=== PATIENT | female | born 1950 | race Two or more races ===

== ENCOUNTER 2021-03-31 05:49 | Day surgery (SDC) | payer OTHER ==
[~2021-03-31 05:49] MED LIST: GABAPENT PO; HUMALOG100 UNIT/1; LANTUS; METFOR PO
== END 2021-03-31 20:00 | disposition home or self-care (01) ==
LOC: CIR.AMB 05:49
PROVIDERS: ATTEND Surgery
DX: C50.412 Malignant neoplasm of upper-outer quadrant of left female breast (principal); Z20.822 Contact with and (suspected) exposure to COVID-19

== ENCOUNTER 2023-07-12 06:30 | Day surgery (SDC) | payer OTHER | END 2023-07-12 19:00 | disposition home or self-care (01) | LOC: CIR.AMB 06:30 | PROVIDERS: ATTEND Surgery | DX: C50.411 Malignant neoplasm of upper-outer quadrant of right female breast (principal); R59.0 Localized enlarged lymph nodes; Z91.013 Allergy to seafood; Z88.6 Allergy status to analgesic agent; Z91.041 Radiographic dye allergy status; Z20.822 Contact with and (suspected) exposure to COVID-19; I10 Essential (primary) hypertension | CPT/HCPCS: 19301; 38525; 38792; 19281; A9541; L8699 ==

== ENCOUNTER 2023-07-12 06:42 | Outpatient (CLI) | payer OTHER | END 2023-07-12 06:44 | disposition home or self-care (01) | LOC: LAB 06:42 | DX: E11.9 Type 2 diabetes mellitus without complications (principal) ==